=== PATIENT | female | born 1955 | race Caucasian/White ===

== ENCOUNTER 2016-10-22 21:29 | Inpatient (IN) | payer MEDICARE ==
[~2016-10-22] VITALS: Ht 170.2 cm; Wt 64.7 kg
--- NOTE | ~2016-10-22 | DS ---
PATIENT'S NAME: ERNESTINA MYERS [facility] AGE: 61 Y [address] ROOM: [place] [address] LOCATION: [facility] ADMIT DATE: 10/22/2016 Discharge Summary DISCHARGE DATE: 10/25/2016 FAMILY PHYSICIAN: Shira Christianson ATTENDING PHYSICIAN: Jarvis Urban CONSULTING PHYSICIAN: Dr. Ivey, Neurology. DISCHARGE DIAGNOSES: 1. Transient aphasia. 2. Supratherapeutic INR. 3. Hypertension. 4. Atrial fibrillation. DISCHARGE MEDICATIONS: 1. ASA 325 mg p.o. daily. 2. Lipitor 80 mg p.o. q.h.s. 3. Carvedilol 25 mg p.o. b.i.d. 4. Vitamin B12 1000 mcg p.o. daily. 5. Neurontin 300 mg p.o. q.h.s. 6. Vasotec 10 mg p.o. daily. 7. Hydrocodone/APAP 5/325 one tablet p.o. t.i.d. p.r.n. pain. 8. Colace 100 mg p.o. b.i.d. p.r.n. constipation. 9. Coumadin 2.5 mg p.o. daily to resume on 10/26/2016. 10. Milk of magnesia 30 mL p.o. daily p.r.n. constipation. HOSPITAL COURSE: Please refer to the admitting H and P dictated by Dr. Urban and to the consultation by Dr. Ivey, Neurology. The patient is a 61-year- old female, who presented with chief complaint of aphasia. The patient is on chronic anticoagulation given her AFib. INR was noted to be 5 in the emergency room. A CT of the head at that point was obtained, which was normal. No sign of bleed nor ischemia. The patient was then admitted to the neuro trauma floor. Teleneurology was consulted. The patient was unable to have an MRI of the brain, given her pacemaker. The patient was also seen by Speech Therapy for swallow exam. The patient was able to be on thin liquid gradually with diet and take pills individually. The patient did have a UA obtained secondary to report of hematuria. This did come back ultimately to grow out E coli. This was treated with ciprofloxacin 250 mg p.o. b.i.d. for a total of 3 days. The patient was placed on bilateral sequential compression devices for DVT prophylaxis and daily INRs were monitored. There was no evidence of new stroke, all things considered after reading the CT and CTA. There was evidence of older basal ganglia infarct, but the CTA was negative. Carotids were not obtained. Echo was also negative for vegetation. The patient had her initial home hypertensive medications held with permissive hypertension allowed. Ultimately, the blood pressures trended up to the 180s PATIENT'S NAME: ERNESTINA MYERS [facility] AGE: 61 Y [address] ROOM: [id number] [place], [place] [address] LOCATION: [facility] ADMIT DATE: 10/22/2016 Discharge Summary DISCHARGE DATE: 10/25/2016 FAMILY PHYSICIAN: Shira Christianson ATTENDING PHYSICIAN: Jarvis Urban to 206 and her home medications were resumed in addition to addition of hydrochlorothiazide. By the morning of 10/25/2016, the patient had no complaints, was feeling well. Her speech had returned to baseline earlier in her hospitalization and there was no evidence of any neurological deficits. The patient denied any chest pain, shortness of breath, or lightheadedness. On the day of discharge, the INR had drifted down to 3.2. The UA, as stated previously, had grown E coli, which was sensitive to the ciprofloxacin, which she had already been receiving treatment for. Blood pressure on the day of discharge was 101/55 at 11:00 a.m., therefore the patient is not being discharged on hydrochlorothiazide, but rather just her Coreg and lisinopril, which were her home medications. DISPOSITION: The patient is being discharged to our home on 10/25/2016. It has been recommended that she follow up with Neurology in 3 months. She was advised to resume her Coumadin starting tomorrow on 10/26/2016. We asked that she have an INR drawn on 10/29/2016. We asked that she follow up with her PCP in 1 week. Appointment has been made for 11/01/2016. The discharge of this patient took greater than 35 minutes and included reviewing medications, discussing resumption of Coumadin. Coordinating followup appointments, and laboratory draws. The patient voiced understanding. I will attempt to discuss this with, ONEIL Reddy, and certainly make sure that this discharge summary reaches her. Thank you for allowing us to help care for this patient. KULDIP BATES PA-C FOR MD BENNIE JURADO/jesse /[id number] d: 10/26/16223 t: 11/03/16 1814, DISCHARGE SUMMARY
--- NOTE | ~2016-10-22 | HP ---
PATIENT'S NAME: ERNESTINA MYERS [facility] AGE: 61 Y [address] ROOM: [place] [address] LOCATION: [facility] ADMIT DATE: 10/22/2016 History & Physical DISCHARGE DATE: FAMILY PHYSICIAN: Shira Christianson ATTENDING PHYSICIAN: MOSES BAIG DATE OF SERVICE: CHIEF COMPLAINT: Aphasia. HISTORY OF PRESENT ILLNESS: This is a 61-year-old female with a history of CVA. The patient has a history of atrial fibrillation and is currently on long-term anticoagulation with Coumadin. As per reviewed history and history obtained from the patient, the patient had a left MCA stroke in May of 2016. At that point of time, there was a CTA of head showed M2 occlusion of the right MCA artery. The patient was then sent to [place] for mechanical thrombectomy, but the attempt was unsuccessful. The patient was then transferred to [facility] for further rehab. She does have her right lower extremity weakness from her prior stroke. The patient is able to write but is not able to speak currently. She has global aphasia. The patient states that the aphasia started at about 7:00 p.m. She reported to the ER about 9:30 p.m. A stroke alert was called. Teleneurology has evaluated the patient along with the ER physician. The patient's INR was found to be supratherapeutic at 5.0, and she was not felt to be a candidate for tPA at that point of time. At the time of my examination on PCU, the patient denies any pain. She states that she had a headache for the past 3 days. She also complains of diarrhea for the past 3 days. She states that she has been lightheaded off and on for the past 3 days. She denies any chest pain. Denies any shortness of breath currently. Denies any abdominal pain. She has not had a fall, hit her head, or lost consciousness. Denies any blurry vision at this point of time. She complains of expressive aphasia and right lower extremity weakness. Denies any other complaints at this point of time. REVIEW OF SYSTEMS: A 10-point review of systems was done and was otherwise negative except as mentioned above. HOME MEDICATIONS: Per SEP. FAMILY HISTORY: PATIENT'S NAME: LUCIA, [facility] AGE: 61 Y [address] ROOM: [place] [address] LOCATION: [facility] ADMIT DATE: 10/22/2016 History & Physical DISCHARGE DATE: FAMILY PHYSICIAN: Shira Christianson ATTENDING PHYSICIAN: MOSES BAIG Father had heart disease and from heart disease. Mother from heart disease as well. Brother with heart problems. Niece with heart problems as well. Grandparents had heart problems as well. PAST SURGICAL HISTORY: 1. Appendectomy. 2. ACDF. 3. Hysterectomy with bilateral salpingo-oophorectomy. 4. Nasal septal surgery. 5. Left thumb surgery. 6. Tonsillectomy. 7. [place] AICD placement. 8. Lumbar fusion surgery. PAST MEDICAL HISTORY: 1. History of atrial fibrillation, on long-term anticoagulation. 2. CVA in 2016. 3. Hypertension. 4. Congestive heart failure. 5. AICD placement. 6. Fibromyalgia. 7. Scoliosis. 8. Arthritis. 9. History of hemorrhoids. 10. Depression. SOCIAL HISTORY: Former smoker, [id number] smoking history reported. Occasional alcohol is reported. PHYSICAL EXAMINATION: VITAL SIGNS: Temperature 97.8, pulse 64 and regular, respirations 16, blood pressure 113/69, saturation 94% on room air. GENERAL: The patient is alert and oriented x3. She answers all questions appropriately by writing. She has global aphasia at this point of time. HEENT: Head: Normocephalic, atraumatic. Pupils are equal, round, reactive to light. Extraocular muscles are intact. Nares clear. Throat clear. Mucous membranes dry. NECK: Supple. No nuchal rigidity. HEART: Regular rate and rhythm. LUNGS: Clear to auscultation bilaterally. ABDOMEN: Soft, nontender, nondistended. Bowel sounds present. EXTREMITIES: No clubbing, cyanosis, or edema. VASCULAR: Pulses 2+ distally bilaterally. NEUROLOGIC: The patient is alert and oriented x3. She has global aphasia. PATIENT'S NAME: ERNESTINA MYERS [facility] AGE: 61 Y [address] ROOM: [place] [address] LOCATION: [facility] ADMIT DATE: 10/22/2016 History & Physical DISCHARGE DATE: FAMILY PHYSICIAN: Shira Christianson ATTENDING PHYSICIAN: MOSES BAIG Currently, she has expressive aphasia. Cranial nerves 2 through 12 grossly intact. Tongue is midline. Sensation intact bilateral upper and lower extremities. Right lower extremity weakness reported. Strength right lower extremity is 2/5, strength bilateral upper and left lower extremity 4+/5. DIAGNOSTIC STUDIES: A 2D echo is pending at this point of time. MRI and MRA brain pending at this point of time and will be done in the morning per Neurology recommendations and stroke protocol. Accu-Chek 92, troponin I less than 0.04, proBNP less than 30. CBC showed a white count of 7.5, hemoglobin 12.2, hematocrit 37.8, platelets 223. A CMP showed sodium 139, potassium 3.8, chloride 103, bicarb 29, BUN 6, creatinine 0.6, glucose 96, calcium 7.9, albumin 3.3, phos level 1.3, GFR more than 60. Anion gap 10.8. Lipid panel pending at this point of time. PT and INR done in the ER. PT 59.8, INR 5.0, and PTT 44. CK-MB is pending. Chest x-ray was done and showed no acute cardiopulmonary abnormality. EKG was done in the ER and showed atrial paced rhythm with a rate of 62 beats per minute. The patient had a CTA neck and brain, that showed normal CTA of the neck and brain. Noncontrast CT of the head was also done, that showed no acute intracranial abnormality. There was a moderate-sized old left basal ganglia lacunar infarct. No evidence of acute ischemia on CT head. ASSESSMENT AND PLAN: A 61-year-old female with a history of CVA, presenting with a new onset of symptoms and expressive aphasia. 1. Expressive aphasia. The patient has expressive aphasia, new onset; right lower extremity weakness. The patient was evaluated in the ER as part of a stroke protocol. Her symptoms started at about 7:30 p.m., and she presented within the time frame for consideration of thrombolytics; however, the patient's INR was found to be 5.0, and she could not qualify for thrombolytics at that point of time per the ER physician. Neurology has seen the patient. CT noncontrast head and a CTA head and neck have been done and showed no acute changes. Per Neurology's recommendations, we will obtain an MRI and MRA in the morning. A 2D echo will be obtained as well in the morning. After the patient was hydrated with IV fluids on PCU, the patient's expressive aphasia resolved. She still does have residual right lower extremity weakness at this point of time. 2. Atrial fibrillation. Her rate is currently well controlled. I will continue rate control per home medication regimen. 3. Long-term anticoagulation. Hold Coumadin for now. The patient's INR is supratherapeutic. Daily INR will be checked. 4. Chronic pain. Continue home medications. 5. Dyslipidemia. Continue Lipitor. 6. Hypertension. I will hold her blood pressure pills for now since she has PATIENT'S NAME: ERNESTINA MYERS [facility] AGE: 61 Y [address] ROOM: [address] [place], [place] [address] LOCATION: [facility] ADMIT DATE: 10/22/2016 History & Physical DISCHARGE DATE: FAMILY PHYSICIAN: Shira Christianson ATTENDING PHYSICIAN: MOSES BAIG presented with stroke-like symptoms, and blood pressure is currently 116 systolic. I will hydrate her aggressively with IV fluids. We will try to maintain blood pressure in the 160s to 180s range. Hold blood pressure pills over the next 24 to 48 hours. Further recommendations per Neurology. CODE STATUS: Full code. Discussed with the patient at the time of admission. MOSES BAIG MD MT/jesse /[id number] D: [id number] T: [id number] HISTORY & PHYSICAL
--- NOTE | ~2016-10-22 | ECHO ---
Transthoracic Echocardiography Report (TTE) Demographics Patient Name ERNESTINA MYERS Date of Study 10/24/2016 Patient Number [id number] Visit Number [id number] Date of 1955 Room Number G6320 Accession Number [id number] Gender Female Age 61 year(s) Referring Sammy Silva [facility] Slitter And Rewinder Machine Operator Candy Walsh VIRAJ, Physician RVT Physician Interpreting Deo Zheng Senior Payroll Administrator Physician A Supervising Ordering Physician Wilmar Kern MD, MD/MLP Nurse Stress Assistant Clinical Director Conclusions Summary The estimated left ventricular ejection fraction is 55%. Mild concentric left ventricular hypertrophy. Diastolic assessment reveals Grade II pseudonormal diastolic function . The left atrium is moderate to severely dilated by LA volume index measurement. Procedure Type of Study TTE procedure:2D Echocardiogram. Procedure Date Date: 10/24/2016 Start: 11:29 AM Study Location: Inpatient Portable Technical Quality: Adequate visualization Indications:CVA. Appropriate Use Criteria: 9 Patient Status: Routine Rhythm: Within normal limits HR: 60 bpm BP: 188/99 mmHg M-Mode/2D Measurements LV Diastolic Dimension: 4.19 cm LV Systolic Dimension: 2.78 cm LV Septum Diastolic: 1.06 cm LV Septum Systolic: 2.38 cm LV PW Diastolic: 1.05 cm AO Root Dimension: 2.1 cm Cardiac Output: 5.97 l/min AV Cusp Separation: 1.6 cm RV Diastolic Dimension: 1.73 cm LA volume: 91 ml IVC Inspiration: 0.6 cm LVOT: 2.2 cm RV Base: 3.17 cm LVOT VTI: 26.2 cm RV Mid: 2.27 cm LV Stroke volume: 99.54 ml TAPSE: 2.9 cm TDI-S': 15 cm/s Doppler Measurements AV Peak Velocity: 2.11 m/s MV Peak E-Wave: 0.81 m/s AV Peak Gradient: 17.81 mmHg MV Peak A-Wave: 0.71 m/s AV Mean Gradient: 9 mmHg MV E/A Ratio: 1.15 LVOT Peak Velocity: 1.29 m/s MV P1/2t: 72 msec TR Gradient:26.42 mmHg PV Peak Velocity: 1.2 m/s Estimated RAP:3 mmHg PV Peak Gradient: 5.76 mmHg Estimated RVSP: 29 mmHg Estimated PASP: 29.42 mmHg E' Septal Velocity: 0.05 m/s A' Septal Velocity: 0.04 m/s E' Lateral Velocity: 0.06 m/s A' Lateral Velocity: 0.1 m/s MV E/E' Ratio: 12 Findings Left Ventricle The estimated left ventricular ejection fraction is 55%. Mild concentric left ventricular hypertrophy. Diastolic assessment reveals Grade II pseudonormal diastolic function . Right Ventricle Normal right ventricle structure and function. Device lead noted in the right ventricle. Left Atrium The left atrium is moderate to severely dilated by LA volume index measurement. Right Atrium Normal right atrial size. Mitral Valve Mild mitral regurgitation by color Doppler. Mild mitral annular calcification. Aortic Valve The aortic valve is mildly sclerotic. Tricuspid Valve Mild tricuspid regurgitation by color Doppler. Pulmonic Valve Trivial pulmonic valve regurgitation by color Doppler. Pericardial Effusion No evidence of pericardial effusion. Miscellaneous thin interatrial septum. Pleural Effusion Pleural effusion present. Signature dtt: Jarocho Desouza dtd: 10/24/16 1129 Physician Self Edit
--- NOTE | ~2016-10-22 | ER ---
PATIENT'S NAME: ERNESTINA MYERS [facility] AGE: 61 Y [address] ROOM: [place] [address] [facility] ADMIT DATE: 10/22/2016 ER/Outpatient Report DISCHARGE DATE: FAMILY PHYSICIAN: Shira Christianson ATTENDING PHYSICIAN: MOSES BAIG HISTORY OF PRESENT ILLNESS: This is a 61-year-old female who presents today with chief complaint of aphasia. This started approximately 30 minutes ago at 2100 hours on 10/22/2016. The states that the patient was in her normal state of health, and then she began to have expressive aphasia, and then was unable to speak at all; seems to be understanding and following some commands, but just having not able to express anything at all. The patient has had something like this 3 weeks ago that apparently just resolved, and she also had something like this back in the end of April, where she had the similar things, global aphasia and some right upper extremity weakness and some right lower extremity weakness. The CT head was initially negative then, but the CT angio confirmed a thrombus in the M2 distribution of the left MCA. Her says this is almost the exact same thing as before. Denies any noncompliance with medications. From that note, the patient was on Xarelto, but currently she is on Coumadin, and she says that she is compliant with all of her meds. The patient is unable to speak at this time. She shakes her head no and nods yes to some questions, and she seems to be able to follow commands. Most of the history is coming from her at this time. Her also said that she had a mild headache earlier. PAST MEDICAL HISTORY: Includes previous CVA with thrombus in the left MCA, also intraventricular thrombus; history of atrial fibrillation, on chronic anticoagulation, she is on Coumadin at this time; coronary artery disease; and hyperlipidemia. PAST SURGICAL HISTORY: Back surgery and AICD placement. SOCIAL HISTORY: denies any smoking, drinking, or drug use. MEDICATIONS: Please see med list. ALLERGIES: PLEASE SEE MED LIST. REVIEW OF SYSTEMS: Reviewed by me as best as I could with the , otherwise limited PATIENT'S NAME: ERNESTINA MYERS [facility] AGE: 61 Y [address] ROOM: [place] [address] [facility] ADMIT DATE: 10/22/2016 ER/Outpatient Report DISCHARGE DATE: FAMILY PHYSICIAN: Shira Christianson ATTENDING PHYSICIAN: MOSES BAIG secondary to the patient's clinical status. PHYSICAL EXAMINATION: VITAL SIGNS: She is 5 feet 8 inches. She is 67 kilos. Blood pressure 137/77, heart rate 61, respiratory rate 19 breaths per minute, temperature is 97.8, saturating 98% on room air. GENERAL: The patient is aphasic at this time. She is wrapping both arms under the back of her thighs. Her says that she has chronic hip pain and is on [place] all the time for this and that right hip has been bothering her especially. EYES: Her pupils are equal and reactive to light. HEART: Her heart rate is at this time regular, it sounds like regular. LUNGS: Her lung sounds sound clear. She does not have any labored breathing, tachypnea, or accessory muscle use. ABDOMEN: Soft and nontender. EXTREMITIES: She has decreased range of motion of the right hip but secondary to pain clearly. NEURO: She is alert. She responds to voice. She looks at, and she tracks appropriately. She is unable to tell us the month and the age at this time as she is aphasic. She is able to open and close her eyes, and grasp strengths bilaterally are equal. She has normal gaze, no evidence of gaze palsy. No visual field loss. No facial palsy. On the left arm, she makes some effort against gravity, but otherwise drifts and the lot of it is effort. On the right arm, she has no drift. The leg, this is also a little bit secondary to effort. She has some effort against gravity on the left side. On the right side, she does not move her leg very much at all. The leg falls to the bed. She does not have any iwzwpj-fney-fgywwh deficits. Sensory: She does not report any sensory loss. She does have severe aphasia. She cannot identify pictures, and she has no problems with extinction or inattention. So, stroke scale we gave her was 13 at this time. EMERGENCY ROOM COURSE: We did an EKG, which shows maybe paced AV. CBC: WBC 7.5, H and H were 12.2/37.8, platelets 223, no bandemia. Sodium 139, potassium 3.8, chloride 103, CO2 of 29, BUN 6, creatinine 0.6. GFR greater than 60. Her INR is 5. Her troponin is less than 0.04. The CT head was a normal CT head, no signs of bleed or ischemia. There was an old left basal ganglia lacunar infarct. We also did a CTA neck, brain and that was also read by Caroline as normal. We also got Teleneurology involved. He evaluated the patient, and I spoke with him, and the plan at this time is to give her aspirin and admit her to the Hospitalist Service. Dr. Baig is informed. IMPRESSION: Cerebrovascular accident, admitted in stable condition. PATIENT'S NAME: ERNESTINA MYERS [facility] AGE: 61 Y [address] ROOM: [address] [address] [facility] ADMIT DATE: 10/22/2016 ER/Outpatient Report DISCHARGE DATE: FAMILY PHYSICIAN: Shira Christianson ATTENDING PHYSICIAN: MOSES BAIG MD EDER DUMONT/jesse /[id number] d: 10/23/16807 t: 11/17/161810, OUTPATIENT REPORT
--- NOTE | ~2016-10-22 | CON ---
PATIENT'S NAME: ERNESTINA MYERS [facility] AGE: 61 Y [address] ROOM: [address] [place], [place] [address] LOCATION: [facility] ADMIT DATE: 10/22/2016 Consultation DISCHARGE DATE: FAMILY PHYSICIAN: Shira Christianson ATTENDING PHYSICIAN: MOSES BAIG HISTORY OF PRESENT ILLNESS: The patient is a 61-year-old woman with history of stroke, who presents now with new symptoms. The patient's family state that she has a relatively recent history of stroke in May of last year. Apparently, reportedly, the patient has had a positive CT angiogram study and QAMARKER] for thrombectomy. The patient now comes to the hospital accompanied by her with the symptoms of difficulty speaking and weakness. She has had left side as well as difficulty with speaking, onset of 9 p.m. The patient's states that prior to this, the patient was at baseline status of altered mentation and without symptoms. were called at 10:08 hours and was present at bedside at 10:16 hours. No other accompanying symptoms or associated symptoms identified. PHYSICAL EXAMINATION: NEUROLOGIC: The patient is alert. She is able to follow commands quite well. She is anarthric and has no speech at all. However, she is able to understand and follow commands quite well with intact comprehension. There is no gaze deviation or gaze preference, and the visual field examination is intact grossly. Motor examination reveals a marked variability of effort throughout the bilateral lower limbs. She has more antigravity movement in the left lower extremity than the right. She has left upper extremity weakness, although once again left leg. IMPRESSION: Stroke. Differential diagnosis includes acute ischemic stroke versus nonvascular event. There is some degree of functional overlay and great deal of variability of effort on clinical evaluation. As such, there is no clear indication of underlying active focal neurologic deficit. For this reason, I do not believe that she is a candidate for thrombolytics. CT head as well as CTA of the head and neck were done and were felt to be negative. There is no indication of on this study. As such, she PATIENT'S NAME: ERNESTINA MYERS [facility] AGE: 61 Y [address] ROOM: [address] [place], [place] [address] [facility] AD[facility] DATE: 10/22/2016 Consultation DISCHARGE DATE: FAMILY PHYSICIAN: Shira Christianson ATTENDING PHYSICIAN: MOSES BAIG is not a candidate for thrombectomy. She will need to be admitted for further workup given the differential diagnosis of underlying history of stroke, to get MRI of the head and if positive, further studies needs to be done. The patient will be started on daily regimen of aspirin for now. However, since she has been anticoagulated with a supratherapeutic INR, anti-thrombolytics can be held. held until INR is normalized, as reported by the ER physician. No other recommendations from my standpoint. Please call us with questions. MD RAVEN HAMILTON/jesse /[id number] d: t: 10/23/16 0054, CONSULTATION REPORT
[~2016-10-22 21:29] MED LIST changes: -FEOSOL325 MG PO; -FISH OIL 1,2001 EAC1 PO; -MIRALAX17 GM PO; -VALIUM5 MG PO; -VASOTEC10 MG PO
[2016-10-22 22:04] LABS: BASOPHIL % 0.4 %; EOSINOPHIL # 0.1 K/uL (0.0-0.5); EOSINOPHIL % 1.1 %; HEMATOCRIT 37.8 % (33.0-46.0); HEMOGLOBIN 12.2 g/dL (10.0-15.0); IMMATURE GRANULOCYTE % 0.3 %; LYMPHOCYTE % 40.2 %; MCHC 32.3 gm/dL (32.0-36.5); MCV 96.2 fl (83.0-98.0); MONOCYTE # 0.4 K/uL (0.0-1.0); MONOCYTE % 5.9 %; MPV 10.5 fl (9.4-12.4); NEUTROPHIL # (ANC) 3.9 K/uL (1.8-7.8); NEUTROPHIL % 52.1 %; NRBC % 0 /100WBC (0-0.00); PLATELET COUNT 223 K/uL (150-450); RBC 3.93 M/uL (3.50-5.50); RDW-CV 12.5 % (11.9-14.6); WBC 7.5 K/uL (4.0-11.0)
[2016-10-22 22:19] LABS: ALBUMIN 3.3 gm/dL (3.5-5.0); ANION GAP 10.8 (10.0-19.0); BLOOD UREA NITROGEN 6 mg/dL (6-24); CALCIUM 7.9 mg/dL (8.5-10.5); CHLORIDE 103 mMol/L (96-110); CO2 29 mMol/L (22-32); CREATININE 0.6 mg/dL (0.5-1.1); ESTIMATED GFR (MDRD EQUATION) > 60; POTASSIUM 3.8 mMol/L (3.7-5.1); SODIUM 139 mMol/L (135-145)
[2016-10-22 22:20] LABS: PROTIME 59.8 SECONDS (9.6-11.1); PTT 44 SECONDS (25-32)
[2016-10-22 22:23] LABS: PHOSPHORUS 1.3 mg/dL (2.5-4.9)
[2016-10-23] MEDS ORDERED: VASOTEC10 MG PO (00:29)
--- NOTE | 2016-10-23 01:32 | NUR ---
Patient came into the ER due to aphasia and R) lower leg weakness. CT done in ER negative. Aspirin given in the ER. Pt NPO waiting for swallow study in am. Pt came to floor aphasic and completely mute able to write things on paper. Placed on tele pacemaker. Gave 500m bolus on arrival to the floor.
[2016-10-23 04:12] LABS: BASOPHIL % 0.3 %; EOSINOPHIL # 0.1 K/uL (0.0-0.5); EOSINOPHIL % 1.6 %; HEMOGLOBIN 12.3 g/dL (10.0-15.0); IMMATURE GRANULOCYTE % 0.2 %; LYMPHOCYTE # 3.2 K/uL (0.8-4.0); LYMPHOCYTE % 49.9 %; MCH 30.8 pg (27.0-34.0); MCHC 32.4 gm/dL (32.0-36.5); MONOCYTE # 0.5 K/uL (0.0-1.0); MONOCYTE % 7.3 %; MPV 10.5 fl (9.4-12.4); NEUTROPHIL # (ANC) 2.6 K/uL (1.8-7.8); NEUTROPHIL % 40.7 %; NRBC % 0 /100WBC (0-0.00); PLATELET COUNT 214 K/uL (150-450); RDW-CV 12.5 % (11.9-14.6); WBC 6.4 K/uL (4.0-11.0)
[2016-10-23 04:28] LABS: ANION GAP 11.8 (10.0-19.0); BLOOD UREA NITROGEN 7 mg/dL (6-24); CALCIUM 7.8 mg/dL (8.5-10.5); CHLORIDE 110 mMol/L (96-110); CO2 26 mMol/L (22-32); CREATININE 0.6 mg/dL (0.5-1.1); ESTIMATED GFR (MDRD EQUATION) > 60; POTASSIUM 3.8 mMol/L (3.7-5.1); SODIUM 144 mMol/L (135-145)
[2016-10-23 04:29] LABS: PROTIME 60.5 SECONDS (9.6-11.1)
--- NOTE | 2016-10-23 04:32 | NUR ---
Significant Event: Patient mute on arrival to floor but was A&Ox3 and could sotelo on paper. 500ml bolous was given on arrival to floor and shortly after pt speech came back. Pt still has some slurring of her speech so pt is NPO until Speech Therapy sees her today. Equal strength in the upper extremities and denies N&T. R) lower leg there is effort against gravity but pt is not able to lift it off the bed. Bedrest. On tele has paced rythm unable to have MRI due to pacemaker. Total of 1000ml bolus was given to get SBP in 150 and 160s pt is currently running 130 up from low 100s. IV to L) AC SL. Midline to R) upper forearm running NS at 100ml/hr. IV tylenol given for headache pain and R) leg pain. Follow up:
--- NOTE | 2016-10-23 11:21 | NUR ---
CONSULT RECEIVED D/T STROKE PROTOCOL. CURRENTLY NPO. WILL PROVIDE DIET ED PRIOR TO DC APPROPRIATE.
[2016-10-23 13:33] LABS: CPK 68 IU/L (21-215)
[2016-10-23 14:32] LABS: BILIRUBIN URINE NEGATIVE (NEGATIVE); BLOOD URINE 150 /UL (NEGATIVE); COLOR URINE YELLOW (YELLOW); GLUCOSE URINE NEGATIVE (NEGATIVE); KETONE URINE NEGATIVE (NEGATIVE); LEUKOCYTES URINE 100 /UL (NEGATIVE); NITRITE URINE NEGATIVE (NEGATIVE); PROTEIN URINE 15 mg/dL (NEGATIVE); TURBIDITY URINE 1+ (CLEAR); UROBILINOGEN URINE NORMAL (NORMAL)
[2016-10-23 14:48] LABS: BACTERIA URINE MANY (NEGATIVE); MUCUS URINE 1+ (NEGATIVE); RBC URINE 0-2 #/HPF (NEGATIVE)
--- NOTE | 2016-10-23 17:27 | NUR ---
Significant Event: Patient is A&O x3. Follows commands. Equal strength in all extremities except for R) leg due to pain. R) leg issue is chronic and she is unable to keep it off the bed. Denies numbness & tingling. NIHSS = 5. Speech is slow at times and occasionally misses words. States she is back to baseline. VSS except for being a little hypertensive. Goal to keep SBP between 150-160. Complains of pain in her lower back and down the R) leg & it is chronic. Up with 1 assist and gait belt. Needs stool for C-diff sample and for hematests x3. IV to L) AC SL and R) arm midline cath infusing. May SL when taking PO well. Accuchecks D/C'd. Cooperative with cares. Follow up: Monitor neuro, home in the next couple of days.
--- NOTE | 2016-10-24 04:08 | NUR ---
Significant Event: The patient is Alert and Oriented x3. Chronic Tingling to the Right leg. Denies all other N/T. Moves all extremities spontaneously and to command. Up with SBA and gaitbelt. Started on PO cipro for a UTI. Pacemaker. Hypertensive this shift SBP in the 200/100's, the patient was restarted this shift on her Home Vasotec. All other VSS. Pain to her back and right leg. Gave [place] at 2214. NIHSS 4. PIV (midline) to right upper arm saline locked. On room air. Still need hematest x3 and a C-diff sample. Follow up:
[2016-10-24 04:50] LABS: INR - (THERAPEUTIC) 4.7 (0.9-1.1); PROTIME 55.9 SECONDS (9.6-11.1)
--- NOTE | 2016-10-24 16:43 | NUR ---
Significant Event: Patient is A&O x3. Follows commands. Equal strength in all extremities except for her R) leg which is chronic. Denies numbness and tingling. Pupils equal and reactive. Speech is a little slow and slightly slurred. Patient states she is back to her normal. NIHSS = 4. VSS but has been hypertensive. Restarted home BP med. Complaints of pain to her back and R) leg. Last gave her [place] @ 1334 with relief noted. Midline cath to her R) upper arm SL. Up with SBA and gait belt. No stools this shift but we do need hematest x3 and a C-diff sample. Cooperative with cares. Follow up: Home tonight after MD rounds.
--- NOTE | 2016-10-25 03:42 | NUR ---
Significant Event: The Patient is Alert and Oriented x3. Denies Numbness but has chronic tingling in her right leg. Moves all extremities spontaneously and to command. Right Leg slightly weaker due to pain. Up with SBA and Gaitbelt. NIHSS 3. PIV (midline) to her Right upper arm saline locked. Abrasion to legs. Bruising to bilateral arms. Pain to right leg gave [place] at 0130. VSS. On room air. On cipro for UTI. Paced. Follow up: Need c-diff sample and hematest x3. Possibly d'c home today
[2016-10-25 05:28] LABS: BASOPHIL % 0.4 %; EOSINOPHIL # 0.1 K/uL (0.0-0.5); EOSINOPHIL % 1.5 %; HEMATOCRIT 38.7 % (33.0-46.0); HEMOGLOBIN 12.4 g/dL (10.0-15.0); IMMATURE GRANULOCYTE % 0.3 %; LYMPHOCYTE # 2.4 K/uL (0.8-4.0); LYMPHOCYTE % 33.8 %; MCH 30.2 pg (27.0-34.0); MCV 94.4 fl (83.0-98.0); MONOCYTE # 0.5 K/uL (0.0-1.0); MONOCYTE % 6.4 %; MPV 10.5 fl (9.4-12.4); NEUTROPHIL # (ANC) 4.2 K/uL (1.8-7.8); NEUTROPHIL % 57.6 %; NRBC % 0 /100WBC (0-0.00); PLATELET COUNT 227 K/uL (150-450); RDW-CV 12.5 % (11.9-14.6); WBC 7.2 K/uL (4.0-11.0)
[2016-10-25 05:37] LABS: INR - (THERAPEUTIC) 3.2 (0.9-1.1); PROTIME 36.9 SECONDS (9.6-11.1)
[2016-10-25 05:47] LABS: ALBUMIN 3.2 gm/dL (3.5-5.0); ANION GAP 13.7 (10.0-19.0); BLOOD UREA NITROGEN 14 mg/dL (6-24); CALCIUM 8.9 mg/dL (8.5-10.5); CHLORIDE 109 mMol/L (96-110); CO2 25 mMol/L (22-32); CREATININE 0.7 mg/dL (0.5-1.1); ESTIMATED GFR (MDRD EQUATION) > 60; POTASSIUM 3.7 mMol/L (3.7-5.1); SODIUM 144 mMol/L (135-145)
--- NOTE | 2016-10-25 10:58 | NUR ---
STROKE ED COMPLETED W/PT. ELASTIC ATTACHER ZIGZAG PT WAS WATCHING HER SODIUM AND FAT IN HER DIET D/T HER HIGH BLOOD PRESSURE AND HIGH CHOLESTEROL. PT ONLY EATS TWO SMALL MEALS PER DAY. PT STATES THAT SHE DOES NOT LEAVE HER HOUSE, UNLESS IT IS TO GO TO THE DOCTORS. WENT OVER POST-STROKE DIET INFORMATION; ENCOURAGED PT TO INCREASE HER ACTIVITY SHE IS ABLE. PT HAS NO QUESTIONS AT THIS TIME.
--- NOTE | 2016-10-25 11:14 | NUR ---
Introduced self and CM role to Jihan and her S/O, James, who was at bedside. Jihan tells me that she is hoping to get to go home today, no concerns about returning there. She does all of her own meds at home and uses no DME to get around with at baseline. Denies any needs for DME/HHC. S/O will transport her home. No other questions, needs or concerns. Will continue to follow and assist.
[2017-02-23] MEDS ORDERED: FISH OIL 1,2001 EAC1 PO (13:07)
== END 2016-10-25 15:12 | disposition disaster alternative care site (69) | DRG 92 ==
LOC: GMED 21:29 → GPCU 23:05 → GNTU 23:05 → GPCU 23:05 → GNTU 23:05
PROVIDERS: Emergency Medicine; Internal Medicine; ADMIT Family Medicine
DX: R47.01 Aphasia (principal); N39.0 Urinary tract infection, site not specified; I11.0 Hypertensive heart disease with heart failure; I50.9 Heart failure, unspecified; I48.91 Unspecified atrial fibrillation; I69.341 Monoplegia of lower limb following cerebral infarction affecting right dominant side; R79.1 Abnormal coagulation profile; Z79.01 Long term (current) use of anticoagulants; E78.5 Hyperlipidemia, unspecified; M79.7 Fibromyalgia; R31.9 Hematuria, unspecified; B96.20 Unspecified Escherichia coli [E. coli] as the cause of diseases classified elsewhere; M41.9 Scoliosis, unspecified; F32.9 Major depressive disorder, single episode, unspecified; Z87.891 Personal history of nicotine dependence; Z95.810 Presence of automatic (implantable) cardiac defibrillator; Z98.1 Arthrodesis status; Z82.49 Family history of ischemic heart disease and other diseases of the circulatory system; G89.29 Other chronic pain; Z79.82 Long term (current) use of aspirin; I25.10 Atherosclerotic heart disease of native coronary artery without angina pectoris; I25.2 Old myocardial infarction; R19.7 Diarrhea, unspecified
CPT/HCPCS: C1751; C9113; J0131; J7030; Q9967

== ENCOUNTER → 2016-10-22 | Outpatient (CLI) | payer MEDICARE ==
[~2016-10-22] MED LIST: ASPIRIN325 MG PO; B-121000 MCG PO; COLACE100 MG PO; COREG25 MG PO; COUMADIN ** IA5 MG PO; FEMARA 2.5 MG2.5 MG PO; FEOSOL325 MG PO; FISH OIL 1,2001 EAC1 PO; HYDROCODON-ACE1 EAC4 PO; K-TAB 10MEQ10 MEQ PO; LANOXIN (DIGI250 MCG PO; LASIX20 MG PO; LIPITOR80 MG PO; LOVENOX 10100 MG/1 M SUB-Q; MILK OF MA400 MG/5 M PO; MIRALAX17 GM PO; NEURONTIN300 MG PO; NICODERM (HABIT14 MG TRANS; NICODERM / HABIT7 MG TRANS; PAXIL40 M1 PO; PEPCID20 MG PO; TYLENOL325 MG PO; VALIUM5 MG PO; VASOTEC10 MG PO; VIMPAT100 MG PO
== END | disposition disaster alternative care site (69) ==
LOC: GAMB 20:57
DX: R47.9 Unspecified speech disturbances (principal); R29.90 Unspecified symptoms and signs involving the nervous system; Z79.891 Long term (current) use of opiate analgesic; Z79.899 Other long term (current) drug therapy; Z88.0 Allergy status to penicillin
CPT/HCPCS: A0425; A0427

== ENCOUNTER → 2017-02-21 | Outpatient (CLI) | payer MEDICARE ==
[~2017-02-21] MED LIST changes: +FEOSOL325 MG PO; +FISH OIL 1,2001 EAC1 PO; +MIRALAX17 GM PO; +VALIUM5 MG PO; +VASOTEC10 MG PO
[2017-02-21 16:11] LABS: OPIATES NEGATIVE (NEGATIVE)
[2017-02-21 16:16] LABS: AMPHETAMINE NEGATIVE (NEGATIVE); BARBITURATE NEGATIVE (NEGATIVE); COCAINE NEGATIVE (NEGATIVE)
== END | disposition disaster alternative care site (69) ==
LOC: GLAB 14:00
PROVIDERS: Orthopaedic Surgery
DX: Z01.818 Encounter for other preprocedural examination (principal); M16.0 Bilateral primary osteoarthritis of hip; M25.751 Osteophyte, right hip; M85.68 Other cyst of bone, other site

== ENCOUNTER 2017-02-23 14:00 | Inpatient (IN) | payer MEDICARE ==
[~2017-02-23] VITALS: Ht 167.6 cm; Wt 68.1 kg
--- NOTE | ~2017-02-23 | DS ---
PATIENT'S NAME: ERNESTINA MYERS [facility] AGE: 61 Y [address] ROOM: [address] [place], [place] [address] LOCATION: G3N ADMIT DATE: 03/02/2017 Discharge Summary DISCHARGE DATE: 03/09/2017 FAMILY PHYSICIAN: Shira Christianson ATTENDING PHYSICIAN: Gabriel Segovia HOSPITAL COURSE: Ms Myers is a 61-year-old white female with multiple medical conditions including a stroke and on Coumadin, but at this time, her hip pain from avascular necrosis is most disabling. If she could do significantly more activity and have a better quality of life with hip replacement. She has had previous spine fusion for degeneration and stenosis, and deformity. She is imbalance. Plan is to do a robotic hip and the CT scan suggested anatomically further shortening the leg would be ideal; however, this would put her spine into more imbalance, I have discussed with her and the plan is to make her leg length the same as it was preop. Robotic total hip was performed. The hip was very stable, ceramic on polyethylene bearing. Postop, had weakness in the right lower extremity consistent with the lumbar plexus, had weakness of both the femoral and the sciatic nerves, but no numbness from her previous spine injury. She had had right-sided lateral approach through the psoas muscle and had had weakness in the right lower extremity, which had improved, but never totally recovered. Surprisingly, she also woke up with the weakness in the left upper extremity. No pain. No numbness, just weakness. Postoperative course, the strength in the left arm rapidly returned. There was some improvement in strength in the right leg, enough that she could ambulate but not normal. Surprisingly, on postoperative day 3, her hemoglobin fell to 5. She was transfused. Medical workup for source of bleeding. No obvious other source of bleeding was identified. On examination, thigh was not significantly distended from hematoma. There is no drainage from the wounds. Wounds were all in good condition. She was taken off Coumadin for a day, then restarted. Hemoglobin stabilized at 9.8. She is on iron and she is on her usual dose of Coumadin. Her PT, INR on the day of discharge is still increasing to a steady state level and the pro-time is 14.7 and the INR is 1.4. On the day of discharge, she has minimal if any pain. She is able to walk. She is able do her self cares. She is eating without problems. She is voiding without problems. Vital signs are stable. No fevers. Wounds are all completely intact. There is no redness, no drainage. Neurologic Examination: Sensation is intact in the upper extremities, the torso, and both lower extremities. Motor strength biceps are 5/5 bilaterally. Triceps are 4/5 on the right and 4/5 on the left. Wrist extensors are 5/5 bilaterally. Geothermal System Installer are 5/5 bilaterally. Intrinsics are 5/5 bilaterally. Iliopsoas 3/5 on the right, 5/5 on the left. Quadriceps 3/5 on the right, 5/5 on the left. Anterior tib 2/5 on the right, 5/5 on the left. Gastrocs 3/5 on the right, 5/5 on the left. There is no calf pain. INSTRUCTIONS: Discharged to home on a regular diet. Activity hip precautions PATIENT'S NAME: ERNESTINA MYERS [facility] AGE: 61 Y [address] ROOM: [place] [address] LOCATION: [facility] ADMIT DATE: 03/02/2017 Discharge Summary DISCHARGE DATE: 03/09/2017 FAMILY PHYSICIAN: Shira Christianson ATTENDING PHYSICIAN: Gabriel Segovia have arranged for home health to help with her therapies at home. DISCHARGE MEDICINES: 1. [employer]. 2. Lipitor. 3. Vitamin B12. 4. Colace. 5. Neurontin. 6. Coumadin. 7. Iron sulfate. 8. Valium for spasm if needed. 9. Coreg. 10. Aspirin. 11. Vasotec. 12. She has a Mepilex dressing, to be changed once a week. We will follow up with Dr. Segovia on March 29, 2017, at 2:00 p.m. X-rays have been ordered at the [facility] at 1:00 p.m. DIAGNOSIS: Right total hip replacement. We will take an AP x-ray of the pelvis. GABRIEL SEGOVIA MD DPM/jesse /[id number] d: 03/09/17 1334 t: 03/10/17 1349, DISCHARGE SUMMARY
--- NOTE | ~2017-02-23 | OR ---
PATIENT'S NAME: ERNESTINA MYERS [facility] AGE: 61 Y [address] ROOM: [address] [address] LOCATION: [facility] ADMIT DATE: 03/02/2017 OR/Procedure Report DISCHARGE DATE: FAMILY PHYSICIAN: Shira Christianson ATTENDING PHYSICIAN: Gabriel Segovia SURGEON: Gabriel Segovia MD SANITATION DIRECTOR: DATE OF PROCEDURE: 03/02/2017 PREOPERATIVE DIAGNOSES: Avascular necrosis with severe right hip pain. POSTOPERATIVE DIAGNOSES: Avascular necrosis with severe right hip pain. PROCEDURES PERFORMED: 1. Right total hip replacement. 2. Robotic guidance. ANESTHESIA: General. INDICATIONS: Ms. Myers is a 61-year-old white female, severe hip pain, has avascular necrosis with collapse, for total hip replacement. The risks, benefits, and alternatives have been discussed. She does have some pelvic tilt and has a spine fusion to her pelvis, has had correction of unstable out of balance degenerative scoliosis. Her right leg is slightly shorter than the left, but she is balanced with her spine. I have discussed all the options, we will plan to make her leg length the same with the replacement. The risks, benefits, and alternatives have all been discussed. DESCRIPTION OF PROCEDURE: Ms. Myers was taken to the operating room, general anesthetic via endotracheal tube, and placed in the left lateral decubitus position. Right hip and lower extremity prepared with DuraPrep, draped sterilely. A 1 cm incision was made over the lateral epicondyle of the knee. A Mfuse registration screw was placed. The registration frame was placed in the iliac crest on the right approximately 1 cm posterior to the anterior superior iliac spine. Through a 12-cm incision, a posterior lateral approach to the hip. The gluteal fascia was divided, retracted, and sciatic nerve was protected. Piriformis and short rotators were divided and retracted. Capsule was excised. Markers were placed in the anterolateral trochanter and in the ilium above the acetabulum. The neck was then cut approximately 5 mm above the lesser trochanter, 45-degree angle and 20 degrees of anteversion. The anterior capsule was excised as well with removal of the resected neck and head. Using the DiObex System, the acetabulum was registered with a series of points. Using the robot, the acetabulum was reamed line to line, 20 degrees of anteversion, and 45 degrees of closure, reamed 54-mm cup. A 54 mm trial was a perfect fit. The temporary trial was placed. A [employer] cutter was PATIENT'S NAME: ERNESTINA MYERS [facility] AGE: 61 Y [address] ROOM: [address] [address] LOCATION: [facility] ADMIT DATE: 03/02/2017 OR/Procedure Report DISCHARGE DATE: FAMILY PHYSICIAN: Shira Christianson ATTENDING PHYSICIAN: Gabriel Segovia then used for a lateral entry point in the canal, the canal was sounded. The [place] broaches up to a size 4 as expected. The -2 high offset neck and a 36- mm head were articulated with the #4 broach, incredibly stable and perfectly balanced soft tissues. The registration frames in the knee and the greater trochanter had loosen and did not allow the leg length to be confirmed, but the balance with position was perfect. Trial components were removed. The 54- mm [place] Press-Fit acetabulum was driven in place. A 36-mm liner and the #4 femoral component with high offset -2 neck with a 36-mm ceramic head. The hip was articulated, perfect fit. Wound was irrigated. The piriformis and short rotators were reattached to the greater trochanter with #1 Ethibond. Gluteal fascia was closed with #1 Ethibond. Subcutaneous tissue was closed with #1 Vicryl followed by 0 Vicryl, followed by 2-0 Vicryl subcuticular, and followed by swapna. Procedure was done without complication. ESTIMATED BLOOD LOSS: From the procedure was less than 200 mL. DISPOSITION/CONDITION: To the Recovery Room in stable condition. COMPLICATIONS: No complications. FINDINGS: Well balanced, stable total hip replacement. GABRIEL SEGOVIA MD DPM/federicol /[id number] d: 03/02/172038 t: 08/12/17 0828, OPERATIVE SUMMARY
[~2017-02-23 14:00] MED LIST changes: -FEOSOL325 MG PO; -MIRALAX17 GM PO; -VALIUM5 MG PO
[2017-03-02 09:52] LABS: INR - (THERAPEUTIC) 1.12 (0.92-1.07); PROTIME 11.8 SECONDS (9.8-11.4)
[2017-03-03 04:49] LABS: HEMATOCRIT 27.9 % (33.0-46.0)
[2017-03-03 04:57] LABS: INR - (THERAPEUTIC) 1.08 (0.92-1.07); PROTIME 11.3 SECONDS (9.8-11.4)
--- NOTE | 2017-03-03 05:23 | NUR ---
Significant Event: UP FROM PACU AT 1855. DRESSING IS CLEAN, DRY AND INTACT. L) HAND IS DROOPED. HAND IS WEAK, MD AWARE. R) FOOT- BIG TOE, 2ND TOE AND FORTH TOE HAVE FEELING. ALL OTHER TOES SHE CAN NOT FEEL. DULL SENSATION TO BOTTOM OF THE FOOT. ON 1 L OF OXYGEN. HAS A UTI. HAS A PACEMAKER. GOT 1 UNIT OF PRBC IN PACU. DR. EATON SAW. VALIUM AT 2020. DILAUDID AT 044. Follow up:
--- NOTE | 2017-03-03 05:33 | NUR ---
PATIENTS LEFT HAND IS DROOPED. WAS NOT MOVING HER HAND AND COULD NOT HOLD ARM UP WITH RESISTANCE. DR. LIMA WAS ON THE FLOOR AND IN THE PATIENTS ROOM WHEN THIS WAS ASSESSED. DR. LIMA HAD THE CHARGE NURSE TO CALL THE STROKE ALERT. RESPIRATORY THERAPY, LAB, RADIOLOGY AND DR. EATON CAME TO THE ALERT.
--- NOTE | 2017-03-03 15:24 | NUR ---
Significant Event: PT ALERT AND ORIENTED. UP IN THE RELCINER WITH 2 ASSIST. CLAUDIA FAIRLY WELL. UNABLE TO AMBULATE DUE TO RT FOOT UNABLE TO DORSAL FLEX. HAS SOME DIFFICULTY ALSO WITH LT HAND. IS BETTER THIS AFTERNOON. HAND GRASPS WEAK ON THE LEFT. POSSIBLE NERVE INVOLVMENT DURING SURGERY DUE TO POSITIONING. VOIDS WELL NO BM TODAY. IV SALINE LOCKED. DILUADID FOR PAIN LAST AT 1413. TYLENOL WILL BE GIVEN AT 1700. PLEASANT AND COOPERTIVE. Follow up:
--- NOTE | 2017-03-03 15:59 | NUR ---
Reviewed chart and talked with Callum Damon APRN for hospitalist service. Introduced self and care management services to patient. Lives at home with significant other James. Reports had quite a bit of pain with movement when got up with P.T. today, and while L hand is getting function back, mri technician is still weak and doesn't trust it. May need skilled or rehab stay, put note on chart for physician that if they think pt will need rehab to consult Dr Gillis. Pt hoping to go home on discharge. Will follow.
--- NOTE | 2017-03-04 03:06 | NUR ---
Significant Event: 2 assist pivot. L) hand weak. R) foot the bottom of the foot is dull with slight plantarflexion and no dorsiflexion. Can not fell the first two toes to R) foot. Dressings are clean, dry and intact. Valium 2.5mg at 0030. Dilaudid at 2241. Voids without difficulty. Follow up:
[2017-03-04 06:07] LABS: INR - (THERAPEUTIC) 1.69 (0.92-1.07); PROTIME 17.8 SECONDS (9.8-11.4)
--- NOTE | 2017-03-04 12:40 | NUR ---
Reviewed chart, waiting for physician direction to see if pt will require skilled stay or rehab stay, otherwise plan is home on discharge. Will follow.
--- NOTE | 2017-03-04 18:55 | NUR ---
Significant Event: UP TO CHAIR, TO BSC WITH 1 ASSIST. AMBUL TO DOOR WITH 2 ASSIST, TOLERATES ACTIVITY FAIR, UNSTEADY ON FEET, HAS FOOT DROP ON RIGHT FOOT, HAS BRACE, MEPILEX DRSG D/I TO RIGHT HIP/THIGH. HAD NORCO 1.5 TAB X3 LASTAT 1800. HAD VALIUM 2.5 MG TAB AT 0900. HOPING TO GO HOME TOMARROW,BUT CHLOE POLLACK REPORTS SHE NEEDS MORE THERAPY... Follow up:
[2017-03-05 05:39] LABS: INR - (THERAPEUTIC) 1.28 (0.92-1.07); PROTIME 13.5 SECONDS (9.8-11.4)
--- NOTE | 2017-03-05 05:43 | NUR ---
Significant Event: A&Ox3, VSS on room air. [place], 1.5 tabs, Q4hrs for pain control. Q4 CSM checks. Slight wiggling to right toes, no dorsaflex. States she has a dull sensation in toes and ankle. Stand pivot transfers. Unsteady but improving. Dressings X2 to right intact, small amount of old drainage to hip dressing. Pleasant and cooperative with cares. Follow up:
--- NOTE | 2017-03-05 14:55 | NUR ---
Significant Event: Pt Aox3. VSS, CSM WNL. IV intact. Dressing C/D/I. Up with one assist, walker and gait belt. AFO insert to right shoe r/t foot drop. Left hand strength has improved greatly. Pain controlled with PRN [place]. Voiding without difficulty, lg soft BM today. Follow up:
[2017-03-05 20:05] LABS: HEMATOCRIT 16.3 % (33.0-46.0); HEMOGLOBIN 5.3 g/dL (10.0-15.0)
[2017-03-05 22:53] LABS: HEMATOCRIT 18.4 % (33.0-46.0)
--- NOTE | 2017-03-06 01:18 | NUR ---
Noticed pt was tremoring. Asked patient about alchohol use, she stated that she occasionally has a drink. Denies substance abuse. Signicant other stated to nurse that the patient drinks approx 3 "vodka sours" approx. 5 days a week. Significant other states that she goes through a 1.75L bottle of vodka/week. Notified
--- NOTE | 2017-03-06 04:33 | NUR ---
Significant Event: A/O X 3. ANSWERS QUESTIONS APPROPRIATELY. COLOR VERY PALE. AT 1900 C/O FEELING FATIGED, GENERALIZED WEAKNESS, REPORTS NOT FEELING WELL. NO NAUSEA. NO H/A, BP 75/49, HR 74, SATS 96% R/A. 98.9 TEMP, MAP 55. REPORTED TO CHARGE NURSE. 2 ASSIST WITH WALKER AND GAITBELT, RETURN TO BE, FEET ELEVATED, HOB LOWERED. BP 85/53 MAP 55. Follow up:
[2017-03-06 07:39] LABS: HEMOGLOBIN 9.5 g/dL (10.0-15.0)
[2017-03-06 07:40] LABS: HEMATOCRIT 27.7 % (33.0-46.0)
[2017-03-06 07:49] LABS: INR - (THERAPEUTIC) 1.32 (0.92-1.07); PROTIME 13.9 SECONDS (9.8-11.4)
--- NOTE | 2017-03-07 04:11 | NUR ---
Significant Event: A/O X 3, ANSWERS QUESTIONS APPROPRIATELY. SAT UP IN RECLINER CHAIR FOR EVENING MEAL. RETURN TO BED 2 ASSIST, GAITBELT WALKER, BEEN REPOSITIONED IN BED. TINGLING TOES RIGHT FOOT. HAS RIGHT FOOT DROP. MOVES ARMS, WIGGLES FINGERS, HAND GRASPS PRESENT. HAD SCHEDULED VALIUM 5MG 2042. [place] 1.[place] [address] PAIN RATE 6, LATER SLEEPING, AT 0300 3 RATING. VOIDS GOOD AMOUNTS. TAKES FLUIDS. NO NAUSEA. ENCOURAGE INCENTIVE SPIROMETER USAGE. BILATERL FOOT PUMPS TO FEET. ROSALBA HOSE OFF AT HS. WEARS AFO IN RIGHT SHOE WHEN UP. MEPILEX DRSGS RIGHT HIP-LATERAL RT KNEE DRY-INTACT. ICE BAG TO SITE. NEED HEMOCCULT TEST YET. Follow up:
[2017-03-07 06:08] LABS: HEMATOCRIT 33.2 % (33.0-46.0); HEMOGLOBIN 11.5 g/dL (10.0-15.0)
[2017-03-07 06:18] LABS: INR - (THERAPEUTIC) 1.23 (0.92-1.07); PROTIME 12.9 SECONDS (9.8-11.4)
--- NOTE | 2017-03-07 08:57 | NUR ---
PT SCREENED D/T LOS. EST NEEDS: [id number] KCALS, 70-80 GM PROTEIN, 1 ML/KCAL FLUIDS. INTAKE IS ADEQUATE. NO NUTRITION-RELATED DIAGNOSIS IDENTIFIED. WILL ASSIST NEEDED.
--- NOTE | 2017-03-07 13:56 | NUR ---
Talked with patient about discharge plan. She says she thinks she is doing well enough to go home on discharge, possibly tomorrow. Friend James will help her at home. Has a walker but friend James she lives with can't find it. She is just going to have him go buy her one and a toilet riser to make her toilet taller. Told her about assistive technologies where she can borrow a walker and possibly a toilet riser and gave her the address and she will have her friend James go see what they have she can borrow for a short time. Will continue to follow.
--- NOTE | 2017-03-07 15:05 | NUR ---
Significant Event: Pt is a/o. Cooperative with cares. Mepilex dressings c/d/i. Foot pumps, solange hose on. R) foot drop, uses AFO in shoe when up. Has decreased plantar flex/dorsi extension and tingling to R) foot. Poss discharge tomorrow. SL R) AC. [place] 1.5 tabs last @ 1253. Follow up:
--- NOTE | 2017-03-08 03:44 | NUR ---
Pt AOx3. CIWA scores q 4h. Pt refused earlier dulcolax. Pt had 1 BM, need 1 hematest. [place] 1.5 tabs for pain, last at 0245. Right foot drop. AFO shoe on when up. One assist. Dressings C/D/I.
[2017-03-08 06:03] LABS: HEMATOCRIT 29.8 % (33.0-46.0); HEMOGLOBIN 9.9 g/dL (10.0-15.0)
[2017-03-08 06:09] LABS: INR - (THERAPEUTIC) 1.32 (0.92-1.07); PROTIME 13.9 SECONDS (9.8-11.4)
--- NOTE | 2017-03-08 14:36 | NUR ---
Significant Event: PT AO. VSS ON RA, AFEBRILE. SL TO R AC. AMBULATES WITH 1PA, GAITBELT AND WALKER. UP IN CHAIR MOST OF DAY. TOLERATING REGULAR DIET. FOOT DROP TO RLE, AFO SHOE. STILL NEED HEMETEST X1. LABS ORDERED FOR THE AM. PT SHOWERED THIS AM WITH OT. CSM- PT REPORTS NUMBNESS TO R TOES, CAN SLIGHTLY WIGGLE THEM. NORCO 1.5 TABS X2 THIS SHIFT SO FAR. Follow up: HEMETEST, MONITOR HGB, PAIN CONTROL
--- NOTE | 2017-03-08 14:50 | NUR ---
Talked with DARIN Lomeli and then with patient. Will recheck hgb in the morning and may get to go home tomorrow. Will have [facility] follow for INR draws, PT/OT for a couple weeks in the home and then go to outpt P.T. Pt agreeable to this plan. Called AOLN Bowers with [facility] and she will go up and talk with patient, put face to face sheet on chart. Dimensional Inspector will follow.
[2017-03-09 04:12] LABS: HEMATOCRIT 30.1 % (33.0-46.0); HEMOGLOBIN 9.8 g/dL (10.0-15.0)
[2017-03-09 04:20] LABS: INR - (THERAPEUTIC) 1.4 (0.92-1.07); PROTIME 14.7 SECONDS (9.8-11.4)
--- NOTE | 2017-03-09 05:09 | NUR ---
Significant Event: PATIENT ALERT/ORIENTED X3, MOVES ALL EXTRIMITIES, COMPLAINED OF PAIN X3, VOIDS TO A BEDSODE COMMODE, UP IN CHAIR X4 HOURS, NO BM, PATIENT HAS NO CONCERNS AT THIS TIME Follow up:
--- NOTE | 2017-03-09 12:58 | NUR ---
Significant Event: Pt is a/o. Cooperative. Up in chair. Voids in BR or on commode with one assist, walker, gaitbelt. CSM WNL - except decreased plantar flexion or dorsi flexion, no changes to R) foot. AFO in R) shoe. [place] last dose @ 0935. Need stool specimen. Plans on discharge this afternoon. Follow up:
[2017-03-09] MEDS ORDERED: FEOSOL325 MG PO (14:27)
[2017-03-09] MEDS ORDERED: MIRALAX17 GM PO (14:28)
[2017-03-09] MEDS ORDERED: VALIUM5 MG PO (14:30)
--- NOTE | 2017-03-09 14:30 | NUR ---
Spoke with Ted, [facility] liaison. She has faxed everything to [facility] and [facility] will plan to see her tomorrow.
--- NOTE | 2017-03-09 15:57 | NUR ---
Significant Event: Patient is alert and oriented x 3. Up with 1 assist, walker, and gaitbelt. VSS. Mepilex dressing x 3 to right hip/lower extremity are clean, dry, and intact. Right AC IV discontinued at 1427. AFO boot intact to right lower extremity. [place] given for pain before dismissal at 1423. Discharge instructions given and gone over with patient. Patient verbalized understanding and papers were signed. Patient dismissed and walked down with hospital staff at 1507. Follow up: Home health to follow-up.
== END 2017-03-09 15:08 | disposition disaster alternative care site (69) | DRG 470 ==
LOC: G3N 03-02 08:33
PROVIDERS: Internal Medicine; Physician Assistant; ADMIT Orthopaedic Surgery
PROC: 0SR904A Replacement of Right Hip Joint with Ceramic on Polyethylene Synthetic Substitute, Uncemented, Open Approach (ICD-10-PCS; principal; 2017-03-02)
PROC: 30233N1 Transfusion of Nonautologous Red Blood Cells into Peripheral Vein, Percutaneous Approach (ICD-10-PCS; 2017-03-05)
DX: M87.00 Idiopathic aseptic necrosis of unspecified bone (principal); I11.0 Hypertensive heart disease with heart failure; I50.32 Chronic diastolic (congestive) heart failure; K76.0 Fatty (change of) liver, not elsewhere classified; D62 Acute posthemorrhagic anemia; I48.0 Paroxysmal atrial fibrillation; Z87.891 Personal history of nicotine dependence; Z88.0 Allergy status to penicillin; Z88.8 Allergy status to other drugs, medicaments and biological substances; Z79.01 Long term (current) use of anticoagulants; Z79.82 Long term (current) use of aspirin; Z79.899 Other long term (current) drug therapy
CPT/HCPCS: A9500; C1713; C1776; J1170; J1650; J2001; J2250; J2405; J2785; J3010; J7030; J7050; J7120; P9016

== ENCOUNTER → 2017-02-24 | Outpatient (CLI) | payer MEDICARE ==
[~2017-02-24] MED LIST changes: +FEOSOL325 MG PO; +MIRALAX17 GM PO; +VALIUM5 MG PO
== END | disposition disaster alternative care site (69) ==
LOC: GNJRC 10:03
DX: Z01.818 Encounter for other preprocedural examination (principal); M87.9 Osteonecrosis, unspecified

== ENCOUNTER → 2017-03-01 | Outpatient (CLI) | payer MEDICARE | LOC: LFPA 15:58 | DX: I48.91 Unspecified atrial fibrillation (principal) ==

== ENCOUNTER → 2017-03-01 | Outpatient (CLI) | payer MEDICARE ==
--- NOTE | ~2017-03-01 | ESTC ---
Cardiac Perfusion Imaging Demographics Patient Name LUCIA Umanzor Gender Female Patient Number [id number] Race Visit Number [id number] Ethnicity Corporate ID Room Number Accession Number [id number] Height 67 inches Date of 1955 Weight 150 pounds Interpreting RADHA Lund Date of study 03/01/2017 Physician Jose Luis Jacobson Supervising /JULIETTE CARBAJAL Technologist Iesha Jacobson Ordering Physician Jose Luis Jacobson park maintenance technician Stress ECG Reading Jose Luis Nurse Yong Kern Physician Kavon [facility] Procedure Procedure Type: Nuclear Stress Test:Pharmacological, Lexiscan, Cardiolite Stress Test Procedure Start time: 03/01/2017 08:15 Indications: Pre surgical clearance and cardiomyopathy. Risk Factors The patient risk factors include:cerebrovascular disease, treated hypercholesterolemia, dyslipidemia and prior MA . Conclusions Summary Perfusion Images: The overall quality of the study is good. Left ventricular cavity is noted to be normal on the stress and rest studies. There is no evidence of abnormal lung activity. The right ventricle is not visualized and cannot be assessed. Stress SPECT images and Rest SPECT images demonstrate homogenous tracer distribution throughout the myocardium except for mild decrease uptake in the area involving the anterior wall consistent with soft tissue attenuation. Gated SPECT imaging reveals normal myocardial thickening and wall motion. The left ventricular ejection fraction was calculated to be 65%. Impression ECG portion of stress test is clinically negative for ischemia by diagnostic criteria. Myocardial perfusion imaging is probably normal. The anterior wall matched defect is consistent with soft tissue attenuation. Overall left ventricular systolic function was normal without regional wall motion abnormalities. There are no previous studies for comparison . Stress Protocols Resting ECG Atrial sensed ventricular pacing Pre-stress physical exam: Patient assessed by Dr Valverde prior to testing. Predicted HR: 161 bpm ECG Findings Indeterminate ECG due to baseline abnormalities. Arrhythmias No rhythm abnormality. Symptoms Lightheadedness Imaging Results Summed scores - Summed stress score: 6 - Summed rest score: 10 - Summed difference score: -4 Stress ejection Ejection fraction:65 % EDV :85 ml ESV :30 ml Stroke volume :55 ml LV mass :116 gr Imaging Protocols Rest Stress Isotope:Tc99m Sestamibi IV Isotope: Tc99m Sestamibi IV Isotope dose:10.7 mCi Isotope dose:31.4 mCi Date:03/01/2017 07:17 Date:03/01/2017 09:02 Technique: SPECT Technique: Gated Supine SPECT Supine Scan Time:45-60 minutes post Scan Time:45-60 minutes post injection injection Procedure Medications - Regadenoson (Lexiscan) 0.4 mg IV over 10-15 sec. I.V. 0.4 mg. Medical History Admission Data Admission date: 03/01/2017 Admission Time: 06:58 Hospital Status: Outpatient. Signatures dtt: KAVON VALVERDE dtd: 03/01/17 0815 Physician Self Edit
== END | disposition disaster alternative care site (69) ==
LOC: GRAD 06:58
DX: Z01.810 Encounter for preprocedural cardiovascular examination (principal); I42.8 Other cardiomyopathies; I25.2 Old myocardial infarction; E78.00 Pure hypercholesterolemia, unspecified; E78.5 Hyperlipidemia, unspecified; R94.39 Abnormal result of other cardiovascular function study
CPT/HCPCS: A9500; J2785

== ENCOUNTER → 2017-03-29 | Outpatient (CLI) | payer MEDICARE | END | disposition disaster alternative care site (69) | LOC: GRAD 12:50 | DX: Z47.1 Aftercare following joint replacement surgery (principal); Z96.641 Presence of right artificial hip joint ==